=== PATIENT | female | born 1990 | race Caucasian/White ===

== ENCOUNTER 2022-10-25 13:00 | Outpatient (RCR) | payer MEDICARE, OTHER, SELFPAY | END 2023-01-08 09:01 | disposition home or self-care (01) | PROVIDERS: PCP Family Medicine; Visit Provider Family Medicine | DX: M22.2X1 Patellofemoral disorders, right knee (principal); G90.521 Complex regional pain syndrome I of right lower limb; M25.561 Pain in right knee; Z51.89 Encounter for other specified aftercare | CPT/HCPCS: 97110; 97112; 97140; 97162 ==